=== PATIENT | female | born 1990 | race Asian ===

== ENCOUNTER 2016-04-03 18:33 | Emergency (ER) | payer BC ==
[~2016-04-03] VITALS: Ht 165.1 cm; Wt 58.1 kg
[2016-04-03] MEDS ORDERED: ACETAMINOPHEN 325 MG TABLET PO ONE (19:00)
[2016-04-03] MEDS ORDERED: ACETAMINOPHEN ES 500 MG TABLET ONE (19:05)
[2016-04-03 20:17] VITALS: BP 130/76
== END 2016-04-03 20:19 | disposition home or self-care (01) ==
LOC: ER 18:34
DX: J20.9 Acute bronchitis, unspecified (principal); R50.9 Fever, unspecified; Z91.013 Allergy to seafood
CPT/HCPCS: 71010-TC; A4606; Z7610